=== PATIENT | male | born 1955 | race Caucasian/White ===

== ENCOUNTER 2018-05-17 12:45 | Emergency (ER) | payer OTHER ==
[2018-05-17 13:19] VITALS: TEMP 98.2; BMI 32.8
--- NOTE | 2018-05-17 14:23 | PDOC ---
History of Present Illness - General Chief Complaint: Pain Stated Complaint: STOMACH PAIN Time Seen by Provider: 05/17/18 13:30 - History of Present Illness Initial Comments: 05/17/18 14:38 Pt is a 63 y/o gentleman with a significant past medical history of HIV, Hepatitis C(Resolved), DM, HTN, and hypothyroidism. Pt presents this afternoon to [facility] c/o generalized abdominal pain that radiates up his esophagus to this throat. Pt states that these symptoms are not constant and that they come and go. Pt endorses a "choking feeling" during these episodes as well as lightheadedness and heart palpitations. States he was recently at [facility] this month for the same problem and was informed that he was experiencing panic attacks. Endorses that he began to have these episodes shortly after his brother underwent triple cardiac bypass surgery and a Carotid Endarterectomy at [facility] 2 months ago. Pt's last episode was this morning while he was shaving. Denies LOC, vomiting, or nausea. PMD- Dr Chiu Allergies- Pentazocine lactate, sulfamethoxazole, Bactrim SocHx- Smokes 5 Cig/day, No alcohol use SexHx- Sexually active, uses protection PSurgHx- Cholecystectomy (2002) FH- Father CVD Past History - Past Medical History Allergies/Adverse Reactions: Allergies Allergy/AdvReac Type Severity Reaction Status Date / Time pentazocine lactate Allergy Intermediate Rash Verified 05/17/18 13:16 [From Talwin] sulfamethoxazole Allergy Intermediate Rash Verified 05/17/18 13:16 [From Bactrim] Home Medications: Ambulatory Orders Levothyroxine [Synthroid] 75 mcg PO DAILY 07/15/12 Methadone [Dolophine] 40 mg PO DAILY 07/15/12 Valsartan [Diovan] 25 mg PO DAILY 07/15/12 Insulin Lispro Protamin/Lispro [Humalog Mix 50-50 Vial] 0 unit SQ DAILY Metoprolol Succinate [Toprol XL -] 25 mg PO DAILY 06/07/14 Streibild 1 tab PO DAILY 06/07/14 Insulin Glargine,Hum.rec.anlog [Tokarlo Leyva] 50 units SCRoscoe ACBK 10/05/15 Anemia: No Asthma: No Cancer: No Cardiac Disorders: (Abnormal stress test 1 week ago) CVA: No COPD: No CHF: No Dementia: No Diabetes: Yes (IDDM) GI Disorders: No Disorders: No HTN: Yes Hypercholesterolemia: No Liver Disease: Yes (Hepatitis C, was treated for sane sucessfully) Seizures: No Thyroid Disease: Yes (Hypothyroidism) - Surgical History Abdominal Surgery: Yes (Open cholecystectomy) Appendectomy: No Cardiac Surgery: No Cholecystectomy: Yes Lung Surgery: No Neurologic Surgery: No Orthopedic Surgery: No - Suicide/Smoking/Psychosocial Hx Smoking Status: Yes Smoking History: Current every day smoker Years of Tobacco Use: 30 Have you smoked in the past 12 months: Yes Number of Cigarettes Smoked Daily: 6 Information on smoking cessation initiated: Yes 'Breaking Loose' booklet given: 10/05/15 Hx Alcohol Use: No Drug/Substance Use Hx: Yes Substance Use Type: None Hx Substance Use Treatment: Yes (methadone clinic weekly) *Physical Exam - Vital Signs Last Vital Signs Temp Pulse Resp BP Pulse Ox 98.2 F 56 L 22 151/78 98 05/17/18 13:17 05/17/18 13:17 05/17/18 13:17 05/17/18 13:17 05/17/18 13:17 - Physical Exam Comments: 05/17/18 14:21 GEN- AAOx3, anxious Neuro- CN 2-12 intact RS- CTA B/L CV- RRR No MRG S1 S2 ABD- NT, ND, No HSM EXT- Onychomycosis b/l feet, no CCE Heart Score/ECG Review - ECG Impressions Comment:: 05/17/18 17:50 EKG normal sinus rhythm, no interval abnormalities, narrow QRS, ST and T wave segments and morphology normal. Nonspecific T wave abnormalities in III, no contiguous lead changes. ED Treatment Course - LABORATORY CBC & Chemistry Diagram: 05/17/18 15:21 05/17/18 16:12 Medical Decision Making - Medical Decision Making 05/17/18 14:36 CBC, CMP, Cardiac profile, Chest X-Ray, EKG 05/17/18 17:49 Troponin WNL, Chest X-RAY no pathology. Cardio referral as outpatient. *DC/Admit/Observation/Transfer Diagnosis at time of Disposition: Abdominal pain, Chest pain - Discharge Dispostion Disposition: HOME Condition at time of disposition: Fair Decision to Admit order: No - Referrals Referrals: Nithin White MD [Primary Care Provider] - Kenny Zavala MD [Staff Physician] - Mirna Engel MD [Staff Physician] - - Patient Instructions Printed Discharge Instructions: DI for Abdominal Pain-Adult, DI for Chest Pain - Post Discharge Activity
[2018-05-17] MEDS ORDERED: BISACODYL 5 MG TABLET.DR (FP) PO ONE (15:03)
[2018-05-17 15:33] LABS: BASO % 0.6 % (0-2.0); EOS % 2.2 % (0-4.5); HEMATOCRIT 43.5 % (35.4-49); HEMOGLOBIN 14.5 GM/dL (11.7-16.9); LYMPH % 21.5 % (8-40); MCH 28.2 pg (25.7-33.7); MCHC 33.4 g/dl (32.0-35.9); MEAN CELL VOLUME 84.4 fl (80-96); MONO % 7.7 % (3.8-10.2); PLATELET COUNT 182 K/MM3 (134-434); RBC 5.16 M/mm3 (4.00-5.60); RDW 14.5 % (11.9-15.9); WHITE BLOOD COUNT 9.4 K/mm3 (4.0-10.0)
[2018-05-17] MEDS ORDERED: BISACODYL 5 MG TABLET.DR (FP) ONE (15:34)
--- NOTE | 2018-05-17 16:15 | PDOC ---
Attending Attestation - Resident Resident Name: Agustin Diez - ED Attending Attestation I have performed the following: I have examined & evaluated the patient, The case was reviewed & discussed with the resident, I agree w/resident's findings & plan - HPI HPI: 05/17/18 16:55 Yonatan 63 YOM, with a significant past medical history of HIV, Hepatitis C( Resolved), DM, HTN, anxiety, and hypothyroidism, who presents to the emergency department with, 1 month of intermittent abdominal pain last episode this morning. The patient describes his symptoms as diffuse radiating to his esophagus and throat. This episode he reports occurred while shaving and is further described as a choking feeling with associated lightheadedness and palpitations. The patient was evaluated by [facility] and diagnosed with anxiety and panic attacks. The patient endorses the symptoms onset shortly after his brother underwent triple bypass surgery. His last stress test was . He denies any recent fevers, chills, headache or dizziness. He denies any recent nausea, vomit, diarrhea or constipation. He denies any recent chest pain or shortness of breath. He denies any recent dysuria, frequency, urgency or hematuria. Allergies: Pentazocine lactate, sulfamethoxazole, Bactrim Past surgical history: Cholecystectomy (2002). Social History: Smoker (5 cigarettes per day). Denies EtOH use and recreational drug use. Primary Care Physician: Dr. White - Physicial Exam PE: 05/17/18 16:55 NAD, well appearing, MMM, nl conjunctiva, anicteric; neck supple. lungs clear, RRR, abdomen soft nontender. HAYES x4, no focal neuro deficits. No peripheral edema. normal color for ethnicity, WWP. - Medical Decision Making 05/17/18 16:57 Yonatan 63 y/o gentleman with a significant past medical history of HIV, Hepatitis C(Resolved), DM, HTN, and hypothyroidism, anxiety. [facility] c/o generalized abdominal pain that radiates up his esophagus to this throat, intermittent x 1 month, last episode this morning while shaving at. Pt endorses a "choking feeling" during these episodes as well as lightheadedness and heart palpitations. States he was recently at [facility] this month for the same problem and was informed that he was experiencing panic attacks. Endorses that he began to have these episodes shortly after his brother underwent triple cardiac bypass surgery and a Carotid Endarterectomy at [facility] 2 months ago. Cardiac angio per report ~2 years ago at [place], which was negative at that time. Family history positive for CAD. 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 Prior notes reviewed, including admissions, discharges and consultations. laboratory results and imaging reviewed, basic labs and lytes and LFTs wnl. Heart score 3, risk of mace 1.6%, in low risk category for chest pain EKG normal sinus rhythm, no interval abnormalities, narrow QRS, ST and T wave segments and morphology normal. Nonspecific T wave abnormalities in III, no contiguous lead changes. CXR clear, suboptimal portably, but no infiltrate or effusions or cardiomegaly. ED course: asymptomatic, comfortable, vitals wnl. Well appearing and no cp/AP. abdomen nontender. trops neg x2 Pt to be discharged in stable condition. Patient and family made aware of impression and plan, return precautions discussed (including but not limited to worsening pain or symptoms), fevers, or signs of infection, chest pain, respiratory distress, inability to tolerate oral intake, dehydration, syncope, or neurologic changes). Follow up with PMD and/or specialist as recommended, follow up information provided, take medications as instructed for duration of time. continue with supportive care, avoid triggers and precipitants. All questions answered to patient's satisfaction and expressed understanding and comfort with this. Will provide cardiology referrals. 05/17/18 17:42 05/17/18 20:01 <Noy Alexandra - Last Filed: 05/17/18 20:01> Heart Score/ECG Review - History History: Slightly suspicious - Electrocardiogram EKG: Normal - Age Age: 45-65 - Risk Factors Risk Factors Heart Score: Yes Hx Hypertension, Yes Hx Diabetes, Yes Positive family hx of cardiac disease Based on the list above the patient has:: >/=3 risk factors or Hx atherosclerotic disease - Troponin Troponin: </= normal limit - Score Heart Score - Total: 3 - ECG Impressions Comment:: 05/17/18 16:56 EKG normal sinus rhythm, no interval abnormalities, narrow QRS, ST and T wave segments and morphology normal. Nonspecific T wave abnormalities in III, no contiguous lead changes. <Noy Alexandra - Last Filed: 05/17/18 20:01> Attestations - Attestations 05/17/18 17:04 Documentation prepared by Semaj Dickson, acting as medical social worker for Noy Alexandra MD. <Semaj Dickson - Last Filed: 05/17/18 17:04> - Attestations Physician Attestation: 05/17/18 17:43 I, Noy Alexandra MD, attest that this document has been prepared under my direction and personally reviewed by me in its entirety. I further attest, that it accurately reflects all work, treatment, procedures and medical decision -making performed by me. <Noy Alexandra - Last Filed: 05/17/18 20:01>
[2018-05-17 17:34] LABS: ALBUMIN 4.2 g/dl (3.4-5.0); ANION GAP 8 MMOL/L (8-16); BILIRUBIN,TOTAL 0.3 mg/dL (0.2-1.0); BLOOD UREA NITROGEN 20 mg/dL (7-18); CALCIUM 9.7 mg/dL (8.5-10.1); CHLORIDE 101 mmol/L (98-107); CO2 30 mmol/L (21-32); CREATININE 0.8 mg/dL (0.55-1.3); GLUCOSE,RANDOM 123 mg/dL (74-106); SGOT/AST 25 U/L (15-37); SGPT/ALT 37 U/L (13-61); SODIUM 139 mmol/L (136-145)
[2018-05-17 17:37] LABS: ALK PHOS 123 U/L (45-117); TOT PROT 8.1 g/dl (6.4-8.2)
[2018-05-17 18:13] VITALS: BP 142/80; PULSE 50
--- NOTE | 2018-05-19 22:01 | EKG ---
Test Reason : Blood Pressure : / mmHG Vent. Rate : 050 BPM Atrial Rate : 050 BPM P-R Int : 166 ms QRS Dur : 092 ms QT Int : 458 ms P-R-T Axes : 042 020 020 degrees QTc Int : 417 ms SINUS BRADYCARDIA OTHERWISE NORMAL ECG WHEN COMPARED WITH ECG OF 07-JUN-2014 10:21, VENT. RATE HAS DECREASED BY 32 BPM Confirmed by CLAYTON EDWARDS MD ([id number]) on 05/19/2018 10:00:50 PM Referred By: Confirmed By:CLAYTON EDWARDS MD
== END 2018-05-17 18:13 | disposition home or self-care (01) ==
LOC: JER 12:45
DX: R07.9 Chest pain, unspecified (principal); R10.9 Unspecified abdominal pain; Z21 Asymptomatic human immunodeficiency virus [HIV] infection status; B19.20 Unspecified viral hepatitis C without hepatic coma; E11.9 Type 2 diabetes mellitus without complications; I10 Essential (primary) hypertension; E03.9 Hypothyroidism, unspecified
CPT/HCPCS: 36415; 71045-TC-FY; 80053; 82550; 82553; 84484; 85025; 93005; 93010; 99283-25

== ENCOUNTER 2021-06-15 14:16 | Emergency (ER) | payer OTHER ==
[2021-06-15 14:41] VITALS: BP 90/61; PULSE 72; TEMP 97.8; BMI 31.4
[2021-06-15] MEDS ORDERED: KETOROLAC TROMETHAMINE 30 MG/1 ML VIAL IM ONE (15:10)
[2021-06-15] MEDS ORDERED: KETOROLAC TROMETHAMINE 30 MG/1 ML VIAL ONE (15:13)
== END 2021-06-15 15:58 | disposition home or self-care (01) ==
LOC: JERFT 14:16
PROC: 3E0233Z Introduction of Anti-inflammatory into Muscle, Percutaneous Approach (ICD-10-PCS; principal; 2021-06-15)
DX: S62.101A Fracture of unspecified carpal bone, right wrist, initial encounter for closed fracture (principal); W18.42XA Slipping, tripping and stumbling without falling due to stepping into hole or opening, initial encounter; Y93.01 Activity, walking, marching and hiking
CPT/HCPCS: 73110-TC-RT-FY; 73130-TC-RT-FY; 99284-25

== ENCOUNTER 2022-12-21 14:22 | Observation (INO) | payer OTHER ==
[2022-12-21] MEDS ORDERED: SODIUM CHLORIDE 1,000 ML IV SCH (14:30)
[2022-12-21 14:59] VITALS: BMI 32.1
[2022-12-21] MEDS ORDERED: ATORVASTATIN CA 80 MG TABLET (FP) PO ONE (15:39)
[2022-12-21 16:20] LABS: BASO % 0.7 % (0-2.0); EOS % 5.4 % (0-4.5); HEMOGLOBIN 13.1 GM/dL (11.7-16.9); MCH 28.9 pg (25.7-33.7); MCHC 33.6 g/dl (32.0-35.9); MEAN CELL VOLUME 85.8 fl (80-96); MEAN PLT VOLUME 9.6 fl (7.5-11.1); MONO % 8.3 % (3.8-10.2); NEUT % 51.6 % (42.8-82.8); PLATELET COUNT 176 10^3/uL (134-434); RBC 4.55 M/mm3 (4.00-5.60); RDW 15.6 % (11.9-15.9); WHITE BLOOD COUNT 6.7 K/mm3 (4.0-10.0)
[2022-12-21 16:42] LABS: INR 0.97 (0.83-1.09); PROTHROMBIN TIME (PATIENT) 11.2 SEC (9.7-13.0)
[2022-12-21 16:45] LABS: ACTIVATED PTT 33.6 SECONDS (25.2-36.5)
[2022-12-21 16:46] LABS: CALCIUM 9.2 mg/dL (8.5-10.1)
[2022-12-21] MEDS ORDERED: ATORVASTATIN CA 80 MG TABLET (FP) ONE (16:46)
[2022-12-21 16:47] LABS: ALBUMIN 3.6 g/dl (3.4-5.0)
[2022-12-21 16:48] LABS: BLOOD UREA NITROGEN 22.2 mg/dL (7-18)
[2022-12-21 16:50] LABS: CREATININE 1.2 mg/dL (0.55-1.3)
[2022-12-21 16:51] LABS: TOT PROT 7.6 g/dl (6.4-8.2)
[2022-12-21 16:52] LABS: BILIRUBIN,TOTAL 0.4 mg/dL (0.2-1)
[2022-12-21] MEDS ORDERED: ASPIRIN 81 MG CHEWABLE TABLETS ONE (17:26)
[2022-12-21] MEDS ORDERED: ASPIRIN 81 MG CHEWABLE TABLETS PO SCH (17:30)
[2022-12-21 18:47] LABS: PH,URINE 5.5 (5.0-8.0); URINE APPEARANCE CLEAR; URINE BILIRUBIN NEGATIVE (NEGATIVE); URINE COLOR YELLOW; URINE GLUCOSE (UA) TRACE (NEGATIVE); URINE KETONE TRACE (NEGATIVE); URINE LEUK ESTERASE NEGATIVE (NEGATIVE); URINE NITRITE NEGATIVE (NEGATIVE); URINE PROTEIN NEGATIVE (NEGATIVE); URINE UROBILINOGEN 0.2 mg/dL (0.2-1.0)
[2022-12-21] MEDS ORDERED: ATORVASTATIN CA 10 MG TABLET (FP) PO SCH (22:00)
[2022-12-21] MEDS: INSULIN (NOVOLOG) ASPART 100 UNITS/ML 10ML VIAL SQ SCH (23:38)
[2022-12-22] MEDS ORDERED: ZOLPIDEM TARTRATE 5 MG TABLET PO SCH ×2 (00:45→22:00)
[2022-12-22] MEDS: INSULIN (NOVOLOG) ASPART 100 UNITS/ML 10ML VIAL SQ SCH ×2 (06:14→11:31)
[2022-12-22] MEDS ORDERED: LEVOTHYROXINE NA 75 MCG TABLET (FP) PO SCH (07:00)
[2022-12-22 07:18] LABS: BASO % 0.6 % (0-2.0); EOS % 4.5 % (0-4.5); HEMATOCRIT 40.9 % (35.4-49); HEMOGLOBIN 13.7 GM/dL (11.7-16.9); LYMPH % 26.3 % (8-40); MCH 28.8 pg (25.7-33.7); MCHC 33.6 g/dl (32.0-35.9); MEAN CELL VOLUME 85.6 fl (80-96); MEAN PLT VOLUME 10.4 fl (7.5-11.1); NEUT % 57.6 % (42.8-82.8); PLATELET COUNT 160 10^3/uL (134-434); RBC 4.77 M/mm3 (4.00-5.60); RDW 15.4 % (11.9-15.9); WHITE BLOOD COUNT 7.1 K/mm3 (4.0-10.0)
[2022-12-22 07:35] LABS: ALBUMIN 3.7 g/dl (3.4-5.0); CALCIUM 9.3 mg/dL (8.5-10.1)
[2022-12-22 07:38] LABS: PHOSPHOROUS 3.6 mg/dL (2.5-4.9)
[2022-12-22 07:40] LABS: TOT PROT 7.6 g/dl (6.4-8.2)
[2022-12-22] MEDS ORDERED: hydrALAZINE HCL 20 MG/ML VIAL IVPUSH ONE (07:45)
[2022-12-22] MEDS ORDERED: ATORVASTATIN CA 10 MG TABLET (FP) PO SCH (09:38)
[2022-12-22] MEDS ORDERED: methaDONE HCL 40 MG DISPERSABLE TABLET PO SCH (10:00)
[2022-12-22] MEDS ORDERED: LOSARTAN POTASSIUM 50 MG TABLET PO SCH (10:00)
[2022-12-22] MEDS ORDERED: CITALOPRAM HYDROBROMIDE 10 MG TABLET PO SCH (10:00)
[2022-12-22] MEDS ORDERED: THIAMINE HCL 100 MG TABLET (FP) PO SCH (10:00)
[2022-12-22] MEDS ORDERED: FOLIC ACID 1 MG TABLET (FP) PO SCH (10:00)
[2022-12-22] MEDS ORDERED: ELVITEG/COB/EMTRI/TENOF (GENVOYA) TABLET PO SCH (10:00)
[2022-12-22] MEDS ORDERED: metoPROLOL SUCCINATE 25 MG TAB.SR.24H (FP) PO SCH (10:00)
[2022-12-22] MEDS ORDERED: ENOXAPARIN NA (PORCINE) 40 MG/0.4 ML DISP.SYRIN SQ SCH (10:00)
[2022-12-22] MEDS ORDERED: ASPIRIN COATED 81 MG TABLET.EC PO SCH (10:00)
[2022-12-22 10:01] VITALS: RESP 20; TEMP 97.7
[2022-12-22] MEDS ORDERED: amLODIPine BESYLATE 10 MG TABLET (FP) PO ONE (11:00)
[2022-12-22 12:39] VITALS: BP 158/98; PULSE 68
[2022-12-22] MEDS ORDERED: amLODIPine BESYLATE 5 MG TABLET (FP) PO SCH (22:00)
== END 2022-12-22 13:34 | disposition home or self-care (01) ==
LOC: JER 14:22 → UNDOADMOB 17:24 → INTOOBSV 17:24 → JERBED 17:24 → J4W 21:43 → JERBED 21:43 → OBSVTOIN 12-22 09:08 → J4W 12-22 09:08 → INTOOBSV 12-22 09:08 → JERBED 12-22 09:08
PROVIDERS: ADMIT Internal Medicine; ATTEND Internal Medicine
PROC: 3E023GC Introduction of Other Therapeutic Substance into Muscle, Percutaneous Approach (ICD-10-PCS; principal; 2022-12-22)
PROC: 3E033GC Introduction of Other Therapeutic Substance into Peripheral Vein, Percutaneous Approach (ICD-10-PCS; 2022-12-22)
PROC: 3E023GC Introduction of Other Therapeutic Substance into Muscle, Percutaneous Approach (ICD-10-PCS; 2022-12-22)
PROC: 3E033GC Introduction of Other Therapeutic Substance into Peripheral Vein, Percutaneous Approach (ICD-10-PCS; 2022-12-22)
DX: I10 Essential (primary) hypertension (principal); F41.9 Anxiety disorder, unspecified; E03.9 Hypothyroidism, unspecified; F19.11 Other psychoactive substance abuse, in remission; B20 Human immunodeficiency virus [HIV] disease; Z86.19 Personal history of other infectious and parasitic diseases; E11.9 Type 2 diabetes mellitus without complications; Z88.8 Allergy status to other drugs, medicaments and biological substances; Z88.2 Allergy status to sulfonamides
CPT/HCPCS: 36415; 70450-TC; 70551-TC; 71045-TC-FY; 80053; 80061; 80307; 81003; 82550; 82553; 82962; 83036; 83690; 83735; 84100; 84443; 84484; 85025; 85610; 85730; 86850; 86900; 86901; 93005; 93010; 94010; 96372; 96374; 99285-25; C9803-CS; G0378; U0003; U0005

== ENCOUNTER 2023-04-27 12:32 | Emergency (ER) | payer OTHER ==
[2023-04-27 12:50] VITALS: BMI 31.5
[2023-04-27] MEDS ORDERED: ACETAMINOPHEN 500 MG TABLET (FP) PO ONE (12:52)
[2023-04-27] MEDS ORDERED: ACETAMINOPHEN 325 MG TABLET (FP) ONE (13:13)
[2023-04-27 14:46] VITALS: BP 110/68; PULSE 78; RESP 19; TEMP 98.6
== END 2023-04-27 14:46 | disposition home or self-care (01) ==
LOC: JER 12:32
DX: M25.561 Pain in right knee (principal); M25.571 Pain in right ankle and joints of right foot; W01.0XXA Fall on same level from slipping, tripping and stumbling without subsequent striking against object, initial encounter
CPT/HCPCS: 73564-TC-RT-FY; 73610-TC-RT-FY; 73630-TC-RT-FY; 99283-25

== ENCOUNTER 2024-04-03 18:11 | Emergency (ER) | payer OTHER ==
[2024-04-03 18:38] VITALS: TEMP 97.8; BMI 32.1
[2024-04-03] MEDS ORDERED: ACETAMINOPHEN INJECTION 100 ML IVPB ONE (19:46)
[2024-04-03] MEDS ORDERED: ONDANSETRON 4 MG/2 ML VIAL ONE (19:46)
[2024-04-03] MEDS: ACETAMINOPHEN 1000 MG/100 ML BAG IVPB ONE (20:01)
[2024-04-03] MEDS: ONDANSETRON 4 MG/2 ML VIAL IVPUSH ONE (20:02)
[2024-04-03] MEDS: LACTATED RINGERS SOLUTION 1000 ML INFUS.BAG IV ONE ×2 (20:02→22:46)
[2024-04-03 20:18] LABS: BASO % 0.3 % (0-2.0); EOS % 1.8 % (0-4.5); HEMATOCRIT 36.8 % (35.4-49); HEMOGLOBIN 12.1 GM/dL (11.7-16.9); LYMPH % 10.9 % (8-40); MCH 29.6 pg (25.7-33.7); MEAN CELL VOLUME 89.8 fl (80-96); MEAN PLT VOLUME 9.9 fl (7.5-11.1); MONO % 9.3 % (3.8-10.2); NEUT % 77.7 % (42.8-82.8); PLATELET COUNT 291 10^3/uL (134-434); RDW 14.4 % (11.9-15.9); WHITE BLOOD COUNT 13.7 K/mm3 (4.0-10.0)
[2024-04-03 20:28] LABS: INR 1.07 (0.83-1.09); PROTHROMBIN TIME (PATIENT) 12.3 SEC (9.7-13.0)
[2024-04-03 20:29] LABS: ACTIVATED PTT 34.4 SECONDS (25.2-36.5)
[2024-04-03 20:43] LABS: POTASSIUM 5.8 mmol/L (3.5-5.1)
[2024-04-03 20:45] LABS: CALCIUM 9.6 mg/dL (8.5-10.1)
[2024-04-03 20:46] LABS: ALBUMIN 2.3 g/dl (3.4-5.0); BLOOD UREA NITROGEN 17.1 mg/dL (7-18); MAGNESIUM 1.9 mg/dL (1.8-2.4)
[2024-04-03 20:49] LABS: CREATININE 1.3 mg/dL (0.55-1.3)
[2024-04-03 20:50] LABS: BILIRUBIN,TOTAL 0.4 mg/dL (0.2-1); TOT PROT 7.6 g/dl (6.4-8.2)
[2024-04-03 21:04] LABS: EPI CELLS 2 /uL (0-25.1); HYALINE CASTS 0 /uL (0-3.1); URINE APPEARANCE CLEAR; URINE BACTERIA 9 /uL (0-1359); URINE BILIRUBIN NEGATIVE (NEGATIVE); URINE COLOR YELLOW; URINE GLUCOSE (UA) TRACE (NEGATIVE); URINE KETONE NEGATIVE (NEGATIVE); URINE LEUK ESTERASE NEGATIVE (NEGATIVE); URINE NITRITE NEGATIVE (NEGATIVE); URINE PROTEIN 1+ (NEGATIVE); URINE RBC 33 /uL (0-23.9); URINE WBC 8 /uL (0-25.8)
[2024-04-03 21:40] LABS: POTASSIUM 4.7 mmol/L (3.5-5.1)
[2024-04-03 21:41] LABS: CALCIUM 8.4 mg/dL (8.5-10.1)
[2024-04-03 21:42] LABS: BLOOD UREA NITROGEN 17.2 mg/dL (7-18)
[2024-04-03 21:45] LABS: CREATININE 1.3 mg/dL (0.55-1.3)
[2024-04-04] MEDS ORDERED: KETOROLAC TROMETHAMINE 15 MG/ML VIAL ONE (00:18)
[2024-04-04] MEDS: morphine CARPU-JECT 4 MG/1 ML DISP.SYRIN IVPUSH ONE (00:23)
[2024-04-04] MEDS: KETOROLAC TROMETHAMINE 15 MG/ML VIAL IVPUSH ONE (00:23)
[2024-04-04 00:26] LABS: CHOLESTEROL 162 mg/dL (50-200)
[2024-04-04 00:28] LABS: LDL CHOLESTEROL (ONLY SJRH) 99 mg/dL (5-100)
[2024-04-04 00:29] LABS: HDL CHOLESTEROL 43 mg/dL (40-60)
[2024-04-04 00:36] VITALS: BP 140/90; PULSE 80; RESP 16
== END 2024-04-04 00:36 | disposition short-term general hospital (02) ==
LOC: JER 18:11
PROC: 3E033NZ Introduction of Analgesics, Hypnotics, Sedatives into Peripheral Vein, Percutaneous Approach (ICD-10-PCS; principal; 2024-04-03)
PROC: 3E0333Z Introduction of Anti-inflammatory into Peripheral Vein, Percutaneous Approach (ICD-10-PCS; 2024-04-03)
PROC: 3E033GC Introduction of Other Therapeutic Substance into Peripheral Vein, Percutaneous Approach (ICD-10-PCS; 2024-04-03)
DX: K86.9 Disease of pancreas, unspecified (principal); R10.32 Left lower quadrant pain; R11.2 Nausea with vomiting, unspecified; R35.0 Frequency of micturition; Z20.822 Contact with and (suspected) exposure to COVID-19
CPT/HCPCS: 0241U-QW; 36415; 71045-TC-FY; 74177-TC; 80048; 80053; 80061; 81003; 83690; 83735; 85025; 85610; 85730; 87086; 93005; 93010; 96374; 96375; 99285-25; J0131; Q9967

== ENCOUNTER 2024-06-24 13:19 | Emergency (ER) | payer OTHER ==
[2024-06-24 14:55] LABS: EOS % 1.3 % (0-4.5); HEMATOCRIT 38.3 % (35.4-49); HEMOGLOBIN 12.9 GM/dL (11.7-16.9); LYMPH % 22.3 % (8-40); MCH 30.8 pg (25.7-33.7); MCHC 33.6 g/dl (32.0-35.9); MEAN CELL VOLUME 91.9 fl (80-96); MEAN PLT VOLUME 9.3 fl (7.5-11.1); MONO % 8.3 % (3.8-10.2); NEUT % 67.1 % (42.8-82.8); PLATELET COUNT 149 10^3/uL (134-434); RBC 4.17 M/mm3 (4.00-5.60); RDW 16.8 % (11.9-15.9)
[2024-06-24 15:13] LABS: CALCIUM 9.1 mg/dL (8.5-10.1)
[2024-06-24 15:14] LABS: ALBUMIN 3.3 g/dl (3.4-5.0); BLOOD UREA NITROGEN 22.9 mg/dL (7-18); MAGNESIUM 1.8 mg/dL (1.8-2.4)
[2024-06-24 15:17] LABS: CREATININE 1.5 mg/dL (0.55-1.3)
[2024-06-24 15:18] LABS: BILIRUBIN,TOTAL 0.5 mg/dL (0.2-1); TOT PROT 7.5 g/dl (6.4-8.2)
[2024-06-24] MEDS: LACTATED RINGERS SOLUTION 1000 ML INFUS.BAG IV ONE (16:11)
[2024-06-24 16:26] VITALS: TEMP 98.3; BMI 30.9
[2024-06-24 16:48] VITALS: BP 158/68; PULSE 78; RESP 18
== END 2024-06-24 17:31 | disposition home or self-care (01) ==
LOC: JER 13:19
DX: R10.33 Periumbilical pain (principal); R42 Dizziness and giddiness; R11.0 Nausea
CPT/HCPCS: 36415; 71045-TC-FY; 80053; 82962; 83690; 83735; 84484; 85025; 93005; 93010; 99285-25

== ENCOUNTER 2024-10-24 11:29 | Emergency (ER) | payer OTHER ==
[2024-10-24 11:45] VITALS: BP 126/86; PULSE 67; RESP 18; TEMP 97.6; BMI 30.9
[2024-10-24] MEDS ORDERED: methaDONE HCL 40 MG DISPERSABLE TABLET ONE (12:36)
[2024-10-24] MEDS ORDERED: methaDONE HCL 10 MG TABLET ONE (12:37)
[2024-10-24] MEDS: methaDONE 40 MG, methaDONE 10 MG PO ONE (13:06)
[2024-10-24 13:11] LABS: BASO % 0.7 % (0-2.0); EOS % 5.5 % (0-4.5); HEMATOCRIT 34.6 % (35.4-49); HEMOGLOBIN 11.3 GM/dL (11.7-16.9); LYMPH % 19.9 % (8-40); MCHC 32.8 g/dl (32.0-35.9); MEAN CELL VOLUME 100.7 fl (80-96); MEAN PLT VOLUME 9.6 fl (7.5-11.1); MONO % 13.4 % (3.8-10.2); NEUT % 60.5 % (42.8-82.8); PLATELET COUNT 115 10^3/uL (134-434); RBC 3.44 M/mm3 (4.00-5.60); RDW 16.9 % (11.9-15.9); WHITE BLOOD COUNT 4.4 K/mm3 (4.0-10.0)
[2024-10-24 13:46] LABS: POTASSIUM 5.2 mmol/L (3.5-5.1)
[2024-10-24 13:48] LABS: ALBUMIN 2.7 g/dl (3.4-5.0); BLOOD UREA NITROGEN 21.1 mg/dL (7-18); CALCIUM 8.5 mg/dL (8.5-10.1)
[2024-10-24 13:52] LABS: CREATININE 1.6 mg/dL (0.55-1.3)
[2024-10-24 13:53] LABS: BILIRUBIN,TOTAL 0.6 mg/dL (0.2-1); TOT PROT 6.4 g/dl (6.4-8.2)
[2024-10-24] MEDS: PERMETHRIN (NIX CREAM SCALP RINSE) 59 ML 1% BOTTLE TP ONE (15:59)
== END 2024-10-24 18:08 | disposition home or self-care (01) ==
LOC: JER 11:29
DX: M25.561 Pain in right knee (principal); B86 Scabies; R21 Rash and other nonspecific skin eruption; L29.9 Pruritus, unspecified
CPT/HCPCS: 36415; 73560-TC-RT-FY; 80053; 82962; 85025; 93005; 93010; 99285-25